=== PATIENT | female | born 1975 | race Two or more races ===

== ENCOUNTER 2016-04-24 15:11 | Emergency (ER) | payer OTHER, MEDICAID ==
[2016-04-24] MEDS ORDERED: IBUPROFEN 600 MG TABLET ONE (15:57)
[2016-04-24] MEDS ORDERED: ACETAMINOPHEN 325 MG TABLET ONE (15:57)
[2016-04-24] MEDS ORDERED: DIAZEPAM 5 MG TABLET ONE (15:58)
== END 2016-04-24 16:11 | disposition home or self-care (01) ==
LOC: ED 15:11
DX: S80.11XA Contusion of right lower leg, initial encounter (principal); V43.62XA Car passenger injured in collision with other type car in traffic accident, initial encounter; Y92.410 Unspecified street and highway as the place of occurrence of the external cause
CPT/HCPCS: 99283 ×2; A9270 ×3